=== PATIENT | male | born 1975 | race Caucasian/White ===

== ENCOUNTER 2023-02-01 14:10 | Outpatient (CLI) | payer OTHER, SELFPAY | END 2023-02-01 14:11 | disposition home or self-care (01) | PROVIDERS: PCP Family Medicine; Visit Provider Internal Medicine | DX: M25.561 Pain in right knee (principal); M25.511 Pain in right shoulder; M25.461 Effusion, right knee | CPT/HCPCS: 80053; 84550; 86039; 86140 ==

== ENCOUNTER 2023-02-10 10:20 | Outpatient (CLI) | payer OTHER, SELFPAY ==
--- NOTE | 2023-02-10 10:15 | CRLHL7_ITS ---
For Patients: As a result of the Century Cures Act, medical imaging exams and procedure reports are released immediately into your electronic medical record. You may view this report before your referring provider. If you have questions, please contact your health care provider. HISTORY: Right knee pain. TECHNIQUE: Noncontrast MRI of the right knee. COMPARISON: No prior. FINDINGS: Medial compartment: Medial meniscus: There is complex tearing of the mid through posterior aspect of the body and posterior horn of the medial meniscus. Meniscal tearing involves the undersurface of the meniscus and also extends to the free edge of the meniscus. Meniscal tearing is noted on coronal PD images #19 through 24 series 6 for example and also apparent on sagittal PD images #21 through 25 of series 7. There is extension to involve the more peripheral undersurface of the meniscus. The more anterior aspect of medial meniscus is intact. Articular cartilage: Mild medial compartment articular cartilage wear (grade 1/2). - Lateral compartment: Lateral meniscus: There is tearing of the lateral meniscal body extending to the free edge of the meniscus on coronal PD image #20 of series 6 though with septa horizontal meniscal signal abnormality extending into the more peripheral meniscus in that location. Articular cartilage: Maintained. 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 Trochlear articular cartilage is maintained. - Ligaments: The anterior and posterior cruciate ligaments are intact. Mild chronic thickening of the MCL. Lateral collateral complex is intact. - Extensor mechanism: The distal quadriceps tendon and patellar tendon are intact. Medial and lateral patellar restraints are intact. No patellar subluxation or oanh. - Joint space: Small amount of joint fluid. No intra-articular joint body. - Bones and soft tissues: There is no acute fracture or avascular necrosis. Tendinosis distal semimembranosus tendon is noted. Trace fluid extends between medial head of gastrocnemius and semimembranosus tendon without much the way of a significant popliteal cyst. IMPRESSION: 1. Complex medial meniscal tear. 2. Small area of tearing of the lateral meniscal body. 3. Mild chondromalacia. Dictated by Godwin Alonso MD @ 02/13/2023 5:49:07 AM (Electronically Signed)
== END 2023-02-10 10:21 | disposition home or self-care (01) ==
PROVIDERS: PCP Family Medicine; Visit Provider Internal Medicine
DX: M25.561 Pain in right knee (principal); S83.231A Complex tear of medial meniscus, current injury, right knee, initial encounter; M94.261 Chondromalacia, right knee
CPT/HCPCS: 73721

== ENCOUNTER 2023-03-22 15:44 | Outpatient (CLI) | payer OTHER, SELFPAY | END 2023-03-22 15:45 | disposition home or self-care (01) | PROVIDERS: PCP Internal Medicine; Visit Provider Internal Medicine | DX: M19.90 Unspecified osteoarthritis, unspecified site (principal); E78.5 Hyperlipidemia, unspecified | CPT/HCPCS: 86039; 86140 ==